=== PATIENT | male | born 1980 | race Caucasian/White ===

== ENCOUNTER 2022-12-09 14:49 | Emergency (ER) | payer OTHER, SELFPAY ==
[2022-12-09 15:04] VITALS: BP 140/85; PULSE 79; RESP 16; TEMP 37.1; O2SAT 98; BMI 29.7
--- NOTE | 2022-12-09 15:11 | DI.RAD.S_ITS ---
PROCEDURE: XR ELBOW LT MIN 3V INDICATIONS: injury at work TECHNIQUE: 3 views of the elbow were acquired. COMPARISON: None. FINDINGS: Bones: No fractures or dislocations. No suspicious bony lesions. Soft tissues: No elbow joint effusion. No suspicious soft tissue calcifications. IMPRESSION: Left elbow without acute fracture or dislocation. If there are persistent symptoms or clinical suspicion for pathology, then repeat radiographs or advanced imaging (CT or MRI) may be considered for further evaluation. Dictated by: Riccardo Hurst M.D. on 12/09/2022 at 16:24 Approved by: Riccardo Hurst M.D. on 12/09/2022 at 16:24
--- NOTE | 2022-12-09 16:56 | ED_ITS ---
HPI - Extremity Injury (Upper) <EDGAR Jack Last Filed: 12/09/22 20:06> General Chief Complaint: Extremity Injury, Upper Stated Complaint: L arm pain Time Seen by Provider: 12/09/22 16:30 Source: patient Mode of arrival: Ambulatory History of Present Illness HPI narrative: This is a 42-year-old male presents to the emergency department due to left elbow pain after lifting up a heavy Pallet. He states that he was attempting to lift it when he felt a ?pop? in his left antecubital fossa area. States that he is now unable to actively flex at his elbow secondary to pain. He denies any numbness or inability to use his distal fingers or hand. Not report any other injuries to his upper extremities. Review of Systems <EDGAR Jack Last Filed: 12/09/22 20:06> Review of Systems Narrative: GENERAL: Denies chills, fatigue, malaise, fever, sweats. HEENT: Denies sinus pain, ear pain, sore throat, difficulty swallowing, dizziness. RESPIRATORY: Denies dyspnea, cough, wheezing, hemoptysis, sputum. CARDIOVASCULAR: Denies chest pain, palpitations, orthopnea, edema, GASTROINTESTINAL: Denies nausea, vomiting, abdominal pain, diarrhea, constipation, melena. : Denies dysuria, frequency, incontinence, hematuria, urinary retention. MUSCULOSKELETAL: Left elbow pain SKIN: Denies rash, skin lesions, or other NEUROLOGIC: Denies weakness, headache, numbness, change in speech, confusion, seizures, incoordination. PSYCHIATRIC: No concerning psychosocial issues. 12 point review of systems is negative except for those stated above Patient History <EDGAR Jack Last Filed: 12/09/22 20:06> Social History Smoking Status: Never smoker Smoking Status: Never smoker Substance Use Type: does not use Exam <EDGAR Jack Last Filed: 12/09/22 20:06> Narrative Exam Narrative: GENERAL: Well-developed patient, in mild distress. HEAD: Atraumatic. Normocephalic. EYES: Pupils equal round and reactive. Extraocular motions intact. No scleral icterus. No injection or drainage. ENT: Nose without bleeding, purulent drainage. Throat without erythema, tonsillar hypertrophy or exudate. Airway patent. NECK: Trachea midline. Non tender EXTREMITIES: Mild disc dull biceps tenderness to palpation. No obvious deformity noted to the left biceps. No pain with passive flexion but does have pain with attempted active flexion. Nearly complete supination and pronation. Neurovascularly intact throughout. BACK: Nontender without deformity or crepitance. No flank tenderness. NEURO: AOx3. SKIN: No rash or erythema of visible areas Initial Vital Signs Initial Vital Signs: Vital Signs Temperature 98.8 F 12/09/22 15:04 Pulse Rate 79 12/09/22 15:04 Respiratory Rate 16 12/09/22 15:04 Blood Pressure 140/85 12/09/22 15:04 Pulse Oximetry 98 12/09/22 15:04 Oxygen Delivery Method Room Air 12/09/22 15:04 <DO Melvin Cooley Last Filed: 12/15/22 04:06> Initial Vital Signs Initial Vital Signs: Vital Signs Temperature 98.8 F 12/09/22 15:04 Pulse Rate 79 12/09/22 15:04 Respiratory Rate 16 12/09/22 15:04 Blood Pressure 140/85 12/09/22 15:04 Pulse Oximetry 98 12/09/22 15:04 Oxygen Delivery Method Room Air 12/09/22 15:04 Course <Mayur Shrestha PA-C - Last Filed: 12/09/22 20:06> Orders Ordered: ED Orders 12/09/22 15:11 XR elbow LT min 3V Stat Vital Signs Vital signs: Vital Signs - 8 hr 12/09/22 15:04 Temperature 98.8 F Pulse Rate 79 Respiratory Rate 16 Blood Pressure 140/85 Pulse Oximetry 98 Oxygen Delivery Method Room Air <DO Melvin Cooley Last Filed: 12/15/22 04:06> Orders Ordered: ED Orders 12/09/22 15:11 XR elbow LT min 3V Stat Vital Signs Vital signs: Vital Signs - 8 hr 12/09/22 15:04 Temperature 98.8 F Pulse Rate 79 Respiratory Rate 16 Blood Pressure 140/85 Pulse Oximetry 98 Oxygen Delivery Method Room Air MDM - Extremity Injury (Upper) <EDGAR Jack Last Filed: 12/09/22 20:06> Imaging Data Extremity x-ray #1: Radiologist's Impression: [address] [id number] ReportSigned Patient: Brittany Lee GMR#: [id number]: 1980Acct:[id number]/Sex: 42 / MDate of Service: 12/09/22Loc: EDAccession Number: [id number] Procedure: XR elbow LT min 3V Ordering Provider: Donnie Koroma D.O. PROCEDURE: XR ELBOW LT MIN 3V INDICATIONS: injury at work TECHNIQUE: 3 views of the elbow were acquired. COMPARISON: None. FINDINGS: Bones: No fractures or dislocations. No suspicious bony lesions. Soft tissues: No elbow joint effusion. No suspicious soft tissue calcifications. IMPRESSION: Left elbow without acute fracture or dislocation. If there are persistent symptoms or clinical suspicion for pathology, then repeat radiographs or advanced imaging (CT or MRI) may be considered for further evaluation. Dictated by: Riccardo Hurst M.D. on 12/09/2022 at 16:24 Approved by: Riccardo Hurst M.D. on 12/09/2022 at 16:24 MDM Narrative Medical decision making narrative: MDM * differential diagnosis includes but not limited to distal biceps tendon injury, elbow fracture, neurovascular injury * Prior records reviewed: Patient has not been here for similar complaints in the past. * My lab interpretation: None obtained * My imgaing interpretation: X-ray shows no fracture * Clinical Decision Rules/Scores evaluated: None * Independent discussions with: None ED Course: This is a 42-year-old male presents to the emergency department complaining of left distal biceps tendon pain. There is no obvious deformity suggestive of a complete biceps tendon tear although based on exam and history this maybe a possibility. Suspect severe strain. X-ray shows no evidence of any kind of bony fracture. Patient saw the the work PA? who advised him to come to the emergency department although it appears that the PA had scheduled him for an MRI tomorrow evening which the patient was just made aware of during our encounter. Advised patient to continue using the sling into be nonweightbearing until he is able to get the MRI and follow up with the PA as well as his primary care provider to review the results. Shared Decision Making: Discussed plan with patient who is comfortable with the plan. Social Considerations: None Disposition: Discharged to home Discharge Plan Departure Patient Disposition: Home Clinical Impression: Strain of biceps tendon Instructions: DI for Elbow Pain Activity Restrictions/Additional Instructions: Thank you for coming to the [facility] Emergency Department today. As we discussed I suspect you have strain of your distal biceps tendon. Please have the MRI completed tomorrow evening and follow up with the primary care provider and work PA to review the results. You may continue to use alternating ibuprofen and Tylenol as needed for the pain I recommend you not use the arm until you are able to follow up regarding the results. Please keep it nonweightbearing. Please keep your arm in the sling as well. I hope you feel better soon. Stand Alone Forms: Patient Portal/API <Donnie Koroma DO - Last Filed: 12/15/22 04:06> Cosign ED Attending Lindsey Attestation: I was immediately available in the department for consultation. Documentation has been reviewed. I agree with assessment and plan.
== END 2022-12-09 17:00 | disposition home or self-care (01) ==
PROVIDERS: Emergency Provider Physician Assistant Medical
DX: S46.212A Strain of muscle, fascia and tendon of other parts of biceps, left arm, initial encounter (principal); X50.0XXA Overexertion from strenuous movement or load, initial encounter; Y99.0 Civilian activity done for income or pay
CPT/HCPCS: 73080; 99283

== ENCOUNTER → 2022-12-10 18:27 | Outpatient (CLI) | payer SELFPAY ==
--- NOTE | 2022-12-10 18:28 | DI.MRI.S_ITS ---
PROCEDURE: MR ELBOW LT W CON INDICATIONS: Pain in left elbow TECHNIQUE: Noncontrast coronal proton density fast spin echo and T2 fast spin echo with fat saturation, axial and sagittal T1 spin echo and T2 fast spin echo with fat saturation through the elbow. COMPARISON: [facility], CR, XR ELBOW LT MIN 3V, 12/09/2022, 15:31. FINDINGS: Image quality: Excellent. Lateral structures: The lateral ulnar collateral ligament and radial collateral ligament both appear intact. The common extensor tendon origin appears to be intact. There is trace overlying edema that is suspicious for a low-grade strain of the adjacent extensor musculature. Medial structures: The ulnar collateral ligament appears intact. The overlying common flexor tendon appears normal. The ulnar nerve appears normal in size and signal within the cubital tunnel. Anterior structures: There is complete tearing of the distal biceps tendon from its insertion onto the radial tuberosity with proximal tendon retraction measuring approximately 4.2 cm to the level of the lacertus fibrosus. Surrounding soft tissue edema and fluid are present. The distal brachialis insertions are intact. The median and radial neurovascular bundles appear normal; no focal muscle atrophy to suggest nerve impingement. Posterior structures: The conjoint triceps tendon from the long and lateral heads appears intact. The medial head of the triceps tendon also appears normal, with direct muscle insertion onto the olecranon. No olecranon bursal fluid. Bone and cartilage: No bone marrow contusions or fractures. No osteochondral injuries. IMPRESSION: 1. Complete tearing of the distal biceps tendon from its insertion onto the radial tuberosity with proximal tendon retraction measuring approximately 4.2 cm to the level of the lacertus fibrosus. 2. Low-grade strain of the proximal extensor musculature adjacent to the lateral humeral epicondyle. No definite common extensor tendon tear. Approved by: Will Solano M.D. on 12/11/2022 at 8:53
== END ==
PROVIDERS: Referring Provider Internal Medicine; Visit Provider Internal Medicine
DX: S46.212A Strain of muscle, fascia and tendon of other parts of biceps, left arm, initial encounter (principal); S46.812A Strain of other muscles, fascia and tendons at shoulder and upper arm level, left arm, initial encounter; M25.522 Pain in left elbow; X58.XXXA Exposure to other specified factors, initial encounter
CPT/HCPCS: 73221